=== PATIENT | female | born 1980 | race Caucasian/White ===

== ENCOUNTER 2024-06-29 11:01 | Inpatient (IN) | payer MEDICAID ==
[~2024-06-29] VITALS: Ht 154.9 cm; Wt 72.1 kg
[2024-06-29 11:29] LABS: BASOPHILS % 0.5 % (0.0-2.0); EOSINOPHILS % 0.8 % (0.0-5.0); HEMATOCRIT. 42.2 % (36.0-48.0); HEMOGLOBIN. 14.4 g/dL (12.0-16.0); LYMPHOCYTES % 26.6 % (20.0-50.0); MEAN CORPUSCULAR HEMOGLOBIN 31.1 pg (28.0-32.0); MEAN CORPUSCULAR VOLUME 91.4 fL (81.0-99.0); MEAN PLATELET VOLUME 8.7 fl (7.4-10.4); MONOCYTES % 13.1 % (2.0-8.0); PLATELET 460 x1000/uL (130-400); RED BLOOD CELL COUNT 4.61 mill/uL (4.2-5.4); RED CELL DISTRIBUTION WIDTH 16.2 % (11.6-14.6); WHITE BLOOD COUNT 9.5 x1000/uL (4.5-11.0)
[2024-06-29 11:37] LABS: CARBON DIOXIDE 27 mEq/L (21-32); CHLORIDE 95 mEq/L (98-107); SODIUM 131 mEq/L (136-145)
[2024-06-29 11:38] LABS: CALCIUM 8.8 mg/dL (8.7-10.4)
[2024-06-29 11:42] LABS: CREATININE 0.8 mg/dL (0.6-1.0)
[2024-06-29 11:43] LABS: GLUCOSE 68 mg/dL (70-105)
[2024-06-29 11:44] LABS: ALANINE AMINOTRANSFERASE 34 IU/L (10-49); ALBUMIN 4.6 g/dL (3.2-4.8); ASPARTATE AMINOTRANSFERASE 32 IU/L (<34)
[2024-06-29 11:45] LABS: BILIRUBIN TOTAL 0.3 mg/dL (0.1-1.0); PROTEIN TOTAL 7.7 g/dL (6.0-8.3)
[2024-06-29 11:59] LABS: CLARITY URINE CLEAR (CLEAR); COLOR URINE YELLOW (YELLOW); GLUCOSE URINE NEGATIVE (NEGATIVE); KETONES URINE NEGATIVE (NEGATIVE); LEUKOCYTE ESTERASE URINE NEGATIVE (NEGATIVE); NITRITE URINE NEGATIVE (NEGATIVE); OCCULT BLOOD URINE NEGATIVE (NEGATIVE); PH URINE 7.5 (4.5-8.0); PROTEIN URINE NEGATIVE (NEGATIVE); SPECIFIC GRAVITY URINE 1.005 (1.005-1.030)
[2024-06-29 12:11] LABS: BILIRUBIN DIRECT < 0.1 mg/dL (<=3.0); UREA NITROGEN BLOOD < 5 mg/dL (9-23)
[2024-06-29 12:12] LABS: POTASSIUM 2.5 mEq/L (3.5-5.1)
[2024-06-29] MEDS: POTASSIUM CHLORIDE 20MEQ/PACKET PO NR (12:52)
[2024-06-29] MEDS: SODIUM CHL 0.9% + KCL 20MEQ/L 1,000 ML IV SCH (13:50)
[2024-06-29] MEDS ORDERED: IPRATROPIUM/ALBUTEROL 0.5-3(2.5)MG/3ML NEB HHN PRN (17:15)
[2024-06-29] MEDS ORDERED: DOCUSATE SODIUM 100MG CAPSULE PO PRN (17:15)
[2024-06-29] MEDS ORDERED: CLONIDINE 0.1MG TABLET PO PRN (17:15)
[2024-06-29] MEDS ORDERED: MAGNESIUM/ALUMINUM HYDROXIDE/SIMETHICONE 30ML UDC PO PRN (17:15)
[2024-06-29] MEDS ORDERED: GUAIFENESIN 200MG/10ML SUGAR FREE UDC PO PRN (17:15)
[2024-06-29] MEDS ORDERED: ACETAMINOPHEN 325MG TABLET PO PRN (17:15)
[2024-06-29] MEDS: FAMOTIDINE 20MG/2ML VIAL IV ONE (17:23)
[2024-06-29] MEDS: ONDANSETRON HCL 4MG/2ML INJ IV ONE (17:23)
[2024-06-29 21:04] LABS: CHLORIDE 103 mEq/L (98-107); POTASSIUM 3.1 mEq/L (3.5-5.1); SODIUM 135 mEq/L (136-145)
[2024-06-29 21:05] LABS: CALCIUM 7.9 mg/dL (8.7-10.4); CARBON DIOXIDE 25 mEq/L (21-32)
[2024-06-29 21:10] LABS: CREATININE 0.6 mg/dL (0.6-1.0); GLUCOSE 93 mg/dL (70-105)
[2024-06-29 21:12] LABS: PHOSPHORUS 1.4 mg/dL (2.5-4.9); UREA NITROGEN BLOOD < 5 mg/dL (9-23)
[2024-06-29 22:00] VITALS: BP 95/52; PULSE 84; RESP 18; TEMP 36.6404
[2024-06-29] MEDS: DEXT 5%/0.9% NACL KCL 20MEQ/L 1,000 ML IV SCH (23:13)
[2024-06-29] MEDS: ACETAMINOPHEN 325MG TABLET PO PRN (23:13)
[2024-06-30] VITALS: BP 113/65; PULSE 85; RESP 20; TEMP 36.6696; O2SAT 97
[2024-06-30 04:00] VITALS: BP 114/59; PULSE 69; RESP 18; TEMP 36.55848; O2SAT 99
[2024-06-30 06:53] LABS: TRIGLYCERIDE 95 mg/dL (0-150)
[2024-06-30 06:54] LABS: CHOLESTEROL 171 mg/dL (<200); HDL CHOLESTEROL 36 mg/dL (>65); LDL CHOLESTEROL 103 mg/dL (5-100)
[2024-06-30 06:55] LABS: THYROID STIMULATING HORMONE 1.51 uIU/mL (0.55-4.78)
[2024-06-30 07:10] LABS: BASOPHILS % 0.6 % (0.0-2.0); EOSINOPHILS % 3.1 % (0.0-5.0); HEMATOCRIT. 36.1 % (36.0-48.0); HEMOGLOBIN. 12.4 g/dL (12.0-16.0); MEAN CORPUSCULAR HEMOGLOBIN 31.4 pg (28.0-32.0); MEAN CORPUSCULAR HGB CONC 34.4 g/dL (31.0-37.0); MEAN CORPUSCULAR VOLUME 91.3 fL (81.0-99.0); MEAN PLATELET VOLUME 8.8 fl (7.4-10.4); MONOCYTES % 10.1 % (2.0-8.0); NEUTROPHILS % 49.2 % (40.0-76.0); PLATELET 385 x1000/uL (130-400); RED BLOOD CELL COUNT 3.96 mill/uL (4.2-5.4); RED CELL DISTRIBUTION WIDTH 16.2 % (11.6-14.6); WHITE BLOOD COUNT 5.8 x1000/uL (4.5-11.0)
[2024-06-30 08:00] VITALS: BP 104/54; PULSE 68; RESP 20; TEMP 36.44736; O2SAT 99
[2024-06-30 10:43] LABS: *AMPHETAMINES SCREEN URINE NEGATIVE (NEGATIVE); *BARBITURATES SCREEN URINE NEGATIVE (NEGATIVE); *BENZODIAZEPINES SCREEN URINE NEGATIVE (NEGATIVE); *COCAINE SCREEN URINE NEGATIVE (NEGATIVE); METHADONE URINE SCREEN NEGATIVE (NEGATIVE); OPIATES URINE SCREEN NEGATIVE (NEGATIVE)
[2024-06-30 10:44] LABS: CANNABINOID URINE SCREEN PRESUMPTIVE POSITIVE (NEGATIVE); ECSTASY MDMA SCREEN URINE NEGATIVE (NEGATIVE); PHENCYCLIDINE URINE SCREEN NEGATIVE (NEGATIVE)
[2024-06-30 12:00] VITALS: BP 94/55; PULSE 70; RESP 20; TEMP 36.50292; O2SAT 100
[2024-06-30] MEDS: SERTRALINE HCL 100MG TABLET PO SCH (15:50)
[2024-06-30] MEDS: BUPROPION HCL 150MG TABLET XL 24HR PO SCH (15:51)
[2024-06-30 16:00] VITALS: BP 94/61; PULSE 88; RESP 20; TEMP 36.78072; O2SAT 100
[2024-06-30 20:00] VITALS: BP 109/73; PULSE 74; RESP 18; TEMP 36.9474; O2SAT 99
[2024-06-30] MEDS: BENZTROPINE MESYLATE 1MG TABLET PO SCH (21:00)
[2024-07-01] VITALS: BP 107/74; PULSE 89; RESP 18; TEMP 36.3918; O2SAT 98
[2024-07-01 04:00] VITALS: BP 120/75; PULSE 82; RESP 17; TEMP 36.44736; O2SAT 98
[2024-07-01 07:42] LABS: CALCIUM 7.4 mg/dL (8.7-10.4); CHLORIDE 108 mEq/L (98-107); SODIUM 141 mEq/L (136-145)
[2024-07-01 07:43] LABS: CARBON DIOXIDE 26 mEq/L (21-32)
[2024-07-01 07:48] LABS: CREATININE 0.7 mg/dL (0.6-1.0); GLUCOSE 95 mg/dL (70-105)
[2024-07-01 08:00] VITALS: BP 92/52; PULSE 78; RESP 18; TEMP 37.39188; O2SAT 99
[2024-07-01 08:02] LABS: UREA NITROGEN BLOOD < 5 mg/dL (9-23)
[2024-07-01 08:09] LABS: POTASSIUM 2.8 mEq/L (3.5-5.1)
[2024-07-01] MEDS: ONDANSETRON HCL 4MG/2ML INJ IV PRN (08:41)
[2024-07-01] MEDS: KCL 20MEQ/100ML PREMIX 100 ML IV SCH (10:48)
[2024-07-01 11:30] LABS: UCG KIT LOT# 840181; UCG SCREEN NEGATIVE
[2024-07-01] MEDS: POTASSIUM CHLORIDE 20MEQ TABLET SR PO NR (11:31)
[2024-07-01 12:00] VITALS: BP 100/65; PULSE 71; RESP 18; TEMP 37.44744; O2SAT 100
[2024-07-01 16:00] VITALS: BP 94/59; PULSE 85; RESP 18; TEMP 38.00304; O2SAT 98
[2024-07-01 16:44] LABS: POTASSIUM 3.5 mEq/L (3.5-5.1)
[2024-07-01 20:00] VITALS: BP 90/52; PULSE 62; RESP 18; TEMP 37.11408; O2SAT 98
[2024-07-02] VITALS: BP 95/44; PULSE 82; RESP 19; TEMP 37.11408; O2SAT 100
[2024-07-02 04:00] VITALS: BP 95/59; PULSE 83; RESP 19; TEMP 36.78072; O2SAT 97
[2024-07-02 07:22] LABS: BASOPHILS % 0.4 % (0.0-2.0); EOSINOPHILS % 2.5 % (0.0-5.0); HEMATOCRIT. 32.3 % (36.0-48.0); HEMOGLOBIN. 10.9 g/dL (12.0-16.0); LYMPHOCYTES % 26.8 % (20.0-50.0); MEAN CORPUSCULAR HEMOGLOBIN 31.8 pg (28.0-32.0); MEAN CORPUSCULAR HGB CONC 33.8 g/dL (31.0-37.0); MEAN CORPUSCULAR VOLUME 94.3 fL (81.0-99.0); MEAN PLATELET VOLUME 8.8 fl (7.4-10.4); MONOCYTES % 6.9 % (2.0-8.0); NEUTROPHILS % 63.4 % (40.0-76.0); PLATELET 290 x1000/uL (130-400); RED BLOOD CELL COUNT 3.43 mill/uL (4.2-5.4); RED CELL DISTRIBUTION WIDTH 16.7 % (11.6-14.6); WHITE BLOOD COUNT 7.3 x1000/uL (4.5-11.0)
[2024-07-02 07:25] LABS: CARBON DIOXIDE 25 mEq/L (21-32); CHLORIDE 110 mEq/L (98-107); SODIUM 141 mEq/L (136-145)
[2024-07-02 07:27] LABS: CALCIUM 7.5 mg/dL (8.7-10.4)
[2024-07-02 07:30] LABS: CREATININE 0.7 mg/dL (0.6-1.0)
[2024-07-02 07:31] LABS: GLUCOSE 108 mg/dL (70-105); UREA NITROGEN BLOOD 6 mg/dL (9-23)
[2024-07-02 07:34] LABS: PHOSPHORUS 2.5 mg/dL (2.5-4.9)
[2024-07-02 08:00] VITALS: BP 95/53; PULSE 86; RESP 18; TEMP 37.72524; O2SAT 98
[2024-07-02] MEDS ORDERED: BUPR-553 PO (08:41)
[2024-07-02] MEDS ORDERED: NALT380S2 IM (08:41)
[2024-07-02] MEDS ORDERED: ARIP300S3 IM (08:41)
[2024-07-02] MEDS ORDERED: SERT-112 PO (08:41)
[2024-07-02] MEDS ORDERED: BENZ1TAB79 PO (08:41)
[2024-07-02] MEDS ORDERED: ONDA-239 PO (08:43)
[2024-07-02 08:50] VITALS: BP 95/53; PULSE 79; TEMP 97.7; O2SAT 99
[2024-07-02 12:00] VITALS: BP 98/56; PULSE 82; RESP 18; TEMP 37.61412; O2SAT 99
== END 2024-07-02 13:48 | disposition home or self-care (01) | DRG 249 ==
LOC: ER 11:01 → EDBEDREQ 16:18 → EDBEDREQTM 16:18 → 5WST 18:04 → 8WST 21:31
PROVIDERS: ADMIT Internal Medicine; ATTEND Internal Medicine
DX: R11.2 Nausea with vomiting, unspecified (principal); E87.1 Hypo-osmolality and hyponatremia; D75.839 Thrombocytosis, unspecified; E87.6 Hypokalemia; E16.2 Hypoglycemia, unspecified; F12.90 Cannabis use, unspecified, uncomplicated; K59.00 Constipation, unspecified; F32.A Depression, unspecified; Z59.00 Homelessness unspecified
CPT/HCPCS: 36415; 80048; 80061; 80076; 80305; 81003; 81025; 82533; 82962; 83735; 84100; 84132; 84443; 85025; 93005; 99285; J2405; J3480; J3490